=== PATIENT | female | born 1970 | race Caucasian/White ===

== ENCOUNTER 2016-06-15 13:52 | Emergency (ER) | payer SELFPAY ==
[~2016-06-15] VITALS: Ht 165.1 cm; Wt 109.0 kg
[~2016-06-15 13:52] MED LIST: DUONI NEB; ENAL10TA7 PO; HYDR-2768 PO; OMEP20TA39 PO; PRED20 PO; VENTAER INH
[2016-06-15 14:00] VITALS: BP 144/94; PULSE 92; RESP 18; TEMP 98.6; O2SAT 95
--- NOTE | 2016-06-15 14:24 | PD ---
HPI Chief Complaint: Cold / Flu Symptoms Time Seen by Provider: 14:20 Travel History International Travel<30 days: No Contact w/Intl Traveler<30days: No Traveled to known affect area: No History of Present Illness HPI Patient is a 45-year-old female with a history of asthma presenting with a one- week history of cough. She states she feels like she has bronchitis and has had a cough with yellow productive sputum for one week. For the last several days cough has improved somewhat however she feels like there is congestion in her chest still. She has burning with coughing in the chest but denies chest pain. She has dyspnea and wheezing which does seem to improve with inhalers temporarily. She denies fevers chills. She has had nasal congestion and axillary and frontal facial pain as well. No rhinorrhea. She denies eye, throat and ear problems. She denies . She denies tobacco use. PFSH Past Medical History Asthma: Yes Cardiovascular Problems: Yes (htn on meds) Diminished Hearing: No GERD: Yes Hypertension: Yes Respiratory: Yes (asthma) Tetanus Vaccination: Unknown ?: Not Tubal Ligation: Yes Social History Alcohol Use: No Tobacco Use: No Substance Use: No Allergies-Medications (Allergen,Severity, Reaction): Coded Allergies: Morphine (Verified Allergy, Mild, RASH, 06/15/16) Reported Meds & Prescriptions Reported Meds & Active Scripts Active Duoneb (Ipratropium-Albuterol Neb) 0.5-2.5 Mg/3 Ml Neb 1 Nebule INH Q4HR NEB Proair Hfa 8.5 GM Inh (Albuterol Sulfate) 90 Mcg/Act Aer 2 Puff INH Q4-6H PRN 108 mcg/actuation Prednisone 20 Mg Tab 40 Mg PO DAILY 5 Days Tessalon Perles (Benzonatate) 100 Mg Cap 100-200 Mg PO TID PRN Azithromycin 250 Mg Tab 250 Mg PO DIRECTED Take 2 tabs (500 mg) on day 1 then 1 tab daily x 4 days. Review of Systems Except as stated in HPI: all other systems reviewed are Neg Physical Exam Narrative GENERAL: Well-developed and well-nourished adult female in no acute distress. SKIN: Warm and dry. Good turgor without tenting. HEAD: Normocephalic and atraumatic. EYES: PERRL bilaterally, 5mm. EOMI bilaterally. No injection or icterus present. No proptosis. Lids without edema or erythema. ENT: Nasal mucosa erythematous and edematous without discharge, septum intact and midline. Buccal mucosa pink and moist. Oropharynx free of erythema, tonsillar hypertrophy, masses, swelling, asymmetry and exudates. Uvula midline and airway patent. NECK: Supple, no meningeal sign. Trachea midline, no JVD. No cervical or facial lymphadenopathy. CARDIOVASCULAR: Regular rate and rhythm without murmurs, rubs, clicks or gallops. Radial and posterior tibial pulses 2+ bilaterally. No pedal edema. RESPIRATORY: Diffuse rhonchi and end-expiratory wheezing, no clear crackles auscultated. No distress or use of accessory muscles. Speaks in full sentences. No stridor, tripoding or drooling. MUSCULOSKELETAL: No gait disturbances. Patient freely moving all four extremities spontaneously. Extremities without clubbing, cyanosis, or edema. No obvious deformities. NEUROLOGIC: CN II-XII grossly intact. Awake and alert. Motor grossly within normal limits. Normal speech. PSYCHIATRIC: Appropriate mood and affect; insight and judgment normal. Data Data Last Documented VS Vital Signs Date Time Temp Pulse Resp B/P Pulse Ox O2 Delivery O2 Flow Rate FiO2 06/15/16 14:00 98.6 92 18 144/94 95 Room Air Orders Chest, Pa & Lat (06/15/16 14:19) Methylprednisolone So Succ Inj (Solumedr (06/15/16 14:30) Albuterol-Ipratropium Neb (Duoneb Neb) (06/15/16 14:30) MDM Medical Decision Making Medical Screen Exam Complete: Yes Emergency Medical Condition: Yes Interpretation(s) Last 24 hours Impressions Chest X-Ray 06/15/16 [id number] Signed Impressions: Service Date/Time: Wednesday, June 15, 2016 14:22 - CONCLUSION: No acute disease. No significant change has occurred. Jerman Gonzalez MD Differential Diagnosis Asthma exacerbation versus acute bronchitis versus pneumonia versus sinusitis Narrative Course Patient is a 45-year-old female with a history of asthma presenting with cough, chest congestion and nasal congestion for 1 week. She is afebrile and nontoxic appearing. Oxygen saturation 95% on room air and she has no increased work of breathing or use of accessory muscles. She has diffuse rhonchi and wheezing, no clear rales auscultated. Patient was given DuoNeb 3, Solu-Medrol and ordered chest x-ray which showed no evidence of acute cardiopulmonary process. On reexam the wheezing has resolved, slight rhonchi still present. Patient feels improved. She'll be discharged with azithromycin given the chronicity cannot rule out a early bacterial etiology. Also prescribed Tessalon Perles and prednisone to help with the symptoms. Patient was given refill of her inhaler of Proventil and given DuoNeb Nebules as she has a home nebulizer.See discharge paperwork for further instructions. The plan was discussed with the patient who acknowledged their understanding and agreement. Reinforced the follow-up with primary care is critically important. Patient instructed on emergent conditions that should prompt return to ED. Diagnosis Primary Impression: Asthma exacerbation Additional Impression: Acute bronchitis Qualified Code: J20.9 - Acute bronchitis, unspecified organism Patient Instructions: Acute Bronchitis (ED), General Instructions Departure Forms: Tests/Procedures, Work Release Enter return to work date: Jun 17, 2016 Additional Instructions: Take medication as prescribed OTC Mucinex, cough suppressants, and decongestants as needed OTC Tylenol or Ibuprofen for fever and discomfort Drink lots of fluid to help clear mucous/drainage and stay hydrated Follow up with PCP in 2 days Return to the ED for any acute worsening of symptoms Med/Other Pt SpecificInfo: Prescription(s) given Scripts Ipratropium-Albuterol Neb (Duoneb)0.5-2.5 Mg/3 Ml Neb1 Nebule INH Q4HR NEB #30 NEBULE Ref 0 Prov:Jennifer Daily MD 06/15/16 Albuterol 8.5 GM Inh (Proair Hfa 8.5 GM Inh)90 Mcg/Act Aer2 Puff INH Q4-6H PRN ( SHORTNESS OF BREATH) #1 INHALER 108 mcg/actuation Prov:Jennifer Daily MD 06/15/16 Prednisone 20 Mg Tab40 Mg PO DAILY 5 Days Prov:Jennifer Daily MD 06/15/16 Benzonatate (Tessalon Perles)100 Mg Pod605-725 Mg PO TID PRN (COUGH) #20 CAP Prov:Jennifer Daily MD 06/15/16 Azithromycin 250 Mg [id number] Mg PO DIRECTED #6 TAB Take 2 tabs (500 mg) on day 1 then 1 tab daily x 4 days. Prov:Jennifer Daily MD 06/15/16 Disposition: 01 DISCHARGE HOME Condition: Stable Saurabh Reed III Jun 15, 2016 14:24
[2016-06-15] MEDS ORDERED: methylPREDNISolone SOD SUCC 125 MG/2 ML VIAL IM ONE (14:30)
[2016-06-15] MEDS: RESP: ALBUTEROL 2.5 MG/IPRATROPIUM 0.5 MG NEB (SCH) INH ×2 (14:34→14:35)
--- NOTE | 2016-06-15 15:30 | RADHPO ---
EXAM DATE/TIME: 06/15/2016 14:22 [facility] COMPARISON: CHEST PA & LAT, September 11, 2015, 17:30. INDICATIONS : Cough and congestion for one week. MEDICAL HISTORY : None. SURGICAL HISTORY : None. ENCOUNTER: Initial ACUITY: 1 week PAIN SCORE: 1/10 LOCATION: Bilateral chest FINDINGS: PA and lateral views of the chest demonstrate the lungs to be symmetrically aerated without evidence of mass, infiltrate or effusion. The cardiomediastinal contours are unremarkable. Osseous structure s are intact. CONCLUSION: No acute disease. No significant change has occurred. Jerman Gonzalez MD on June 15, 2016 at 15:28 Board Certified Radiologist. This report was verified electronically.
[2016-06-15] MEDS ORDERED: ALBUAER3 INH (15:41)
[2016-06-15] MEDS ORDERED: BENZ100 PO (15:41)
[2016-06-15] MEDS ORDERED: IPRASOL INH (15:41)
[2016-06-15] MEDS ORDERED: AZIT250T3 PO (15:41)
[2016-06-15] MEDS ORDERED: PRED20 PO (15:41)
[2016-06-15 16:00] VITALS: BP 160/73
== END 2016-06-15 16:07 | disposition home or self-care (01) ==
LOC: PHEFT 13:52
DX: J45.901 Unspecified asthma with (acute) exacerbation (principal); J20.9 Acute bronchitis, unspecified; I10 Essential (primary) hypertension
CPT/HCPCS: 71020; 94640; 94664; 96372; 99283; J2930

== ENCOUNTER 2017-03-07 17:50 | Emergency (ER) | payer SELFPAY ==
[~2017-03-07 17:50] MED LIST changes: +ALBUAER3 INH; +AZIT250T3 PO; +BENZ100 PO; -DUONI NEB; -ENAL10TA7 PO; -HYDR-2768 PO; +IPRASOL INH; -OMEP20TA39 PO; -VENTAER INH
[2017-03-07 17:59] VITALS: BP 224/90; PULSE 99; RESP 20; TEMP 98.6; O2SAT 97
[2017-03-07] MEDS ORDERED: NEXI20CA PO (18:02)
[2017-03-07] MEDS ORDERED: ENALAPRIL MALEATE 10 MG TAB PO ONE (18:45)
[2017-03-07] MEDS ORDERED: HYDROCHLOROTHIAZIDE 25 MG TAB PO ONE (18:45)
[2017-03-07] MEDS ORDERED: HYDR25TA5 PO (18:47)
[2017-03-07] MEDS ORDERED: ENAL10TA PO (18:47)
--- NOTE | 2017-03-07 18:53 | PD ---
HPI Chief Complaint: Pain: Acute or Chronic Time Seen by Provider: 18:40 Travel History International Travel<30 days: No Contact w/Intl Traveler<30days: No Traveled to known affect area: No History of Present Illness HPI The patient is a 46-year-old female who presents emergency department for right leg pain. The patient notes a 3 to four-day history of right leg pain is located over the posterior aspect of the right calf, right popliteal fossa, and distal aspect of the right hamstring. The patient denies any known injury to the affected area. The pain is moderate, worse with weightbearing and activity, slightly alleviated at rest. She does note mild edema the right lower extremity. She denies any numbness or tingling to the right lower extremity denies any coolness to the right lower extremity. The patient denies any history of pulmonary embolism, DVT, recent hospitalizations, recent surgery , or recent prolonged travel. The patient also has a history of hypertension and has been off of her medications including enalapril 10 mg and hydrochlorothiazide 25 mg daily for the last 2 months. She does note her blood pressure is elevated but denies any acute headache, chest, shortness breath, nausea, vomiting, or abdominal pain. Symptoms are mild to moderate, no known alleviating or exacerbating factors. PFSH Past Medical History Arthritis: Yes Asthma: Yes Cardiovascular Problems: Yes Diminished Hearing: No GERD: Yes Hypertension: Yes Respiratory: Yes (asthma) ?: Not Tubal Ligation: Yes Social History Alcohol Use: No Tobacco Use: No Substance Use: No Allergies-Medications (Allergen,Severity, Reaction): Coded Allergies: morphine (Unverified Allergy, Mild, RASH, 03/07/17) Reported Meds & Prescriptions Reported Meds & Active Scripts Active Reported Nexium (Esomeprazole DR) 20 Mg Capdr 20 Mg PO DAILY Review of Systems Except as stated in HPI: all other systems reviewed are Neg HENT: No: Headaches, Lightheadedness Cardiovascular: No: Chest Pain or Discomfort Respiratory: No: Shortness of Breath Gastrointestinal: No: Nausea, Vomiting Musculoskeletal: Positive: Edema, Pain Skin: No Rash Neurologic: No: Paresthesia, Sensory Disturbance Physical Exam Narrative GENERAL: Awake, alert, very pleasant 46-year-old female who appears her stated age and is in no acute respiratory distress. SKIN: Focused skin assessment warm/dry. HEAD: Atraumatic. Normocephalic. EYES: No injection or drainage. ENT: No nasal bleeding or discharge. Mucous membranes pink and moist. NECK: Trachea midline. No JVD. CARDIOVASCULAR: Regular rate and rhythm. No murmur appreciated. RESPIRATORY: No accessory muscle use. Clear to auscultation. Breath sounds equal bilaterally. MUSCULOSKELETAL: The right leg has no obvious edema compared left leg except over the anterior aspect of the right foot. Positive dorsalis pedal pulses bilateral. Mild tenderness of the posterior aspect of the right calf, pop to fossa, distal right hamstring. No obvious varicosities noted. NEUROLOGICAL: Awake and alert. No obvious cranial nerve deficits. Motor grossly within normal limits. Normal speech. Sensation is intact of the medial , lateral, and dorsal aspect of the right foot. PSYCHIATRIC: Appropriate mood and affect; insight and judgment normal. Data Data Last Documented VS Vital Signs Date Time Temp Pulse Resp B/P (MAP) Pulse Ox O2 Delivery O2 Flow Rate FiO2 03/07/17 17:59 98.6 99 20 224/90 (134) 97 Orders Orders Complete Blood Count With Diff (03/07/17 18:40) Basic Metabolic Panel (Bmp) (03/07/17 18:40) Act Partial Throm Time (Ptt) (03/07/17 18:40) Prothrombin Time / Inr (Pt) (03/07/17 18:40) Us Leg Venous Doppler (03/07/17 ) Enalapril (Vasotec) (03/07/17 18:45) Hydrochlorothiazide (Hydrodiuril) (03/07/17 18:45) MDM Medical Decision Making Medical Screen Exam Complete: Yes Emergency Medical Condition: Yes Medical Record Reviewed: Yes Differential Diagnosis Differential diagnosis includes DVT, muscle strain, radiculopathy, hypertensive , noncompliance, hypertensive urgency, hypertensive emergency. Narrative Course IV was established, labs are drawn and sent, and the patient was placed on cardiac telemetry monitoring and continuous pulse oximetry monitoring. The patient was administered enalapril 10 mg orally and Hydrocort Dyazide 25 g orally. BMP and coags were sent to lab. Ultrasound of the right lower extremity was ordered to rule out DVT. The patient was signed out to the oncoming physician at 7 PM with laboratory evaluation and ultrasound pending. I will refill the patient's prescription for enalapril and hydrochlorothiazide as she states she had been on it for some time prior to running out 2 months ago. Diagnosis Primary Impression: Right leg pain Additional Impression: Hypertension Qualified Codes: I10 - Essential (primary) hypertension Patient Instructions: General Instructions Scripts Hydrochlorothiazide (Hydrochlorothiazide) 25 Mg Tab 25 MG PO DAILY, #30 TAB 2 Refills Prov: Patrick Freire MD 03/07/17 Enalapril (Enalapril) 10 Mg Tab 10 MG PO DAILY, #30 TAB 2 Refills Prov: Patrick Freire MD 03/07/17 Disposition: 01 DISCHARGE HOME Condition: Stable Patrick Freire MD Mar 07, 2017 18:53
[2017-03-07 18:57] VITALS: BP 199/88; PULSE 95; O2SAT 96
[2017-03-07 19:10] LABS: AUTOMATED NEUTROPHIL # 7.6 TH/MM3 (1.8-7.7); BASOPHIL # 0.1 TH/MM3 (0-0.2); BASOPHIL % 0.5 % (0.0-2.0); EOSINOPHIL # 0.4 TH/MM3 (0-0.4); EOSINOPHIL % 3.4 % (0.0-4.0); HEMATOCRIT 35.6 % (35.0-46.0); HEMO FLAGS DIFF FINAL; LYMPH % 18.6 % (9.0-44.0); LYMPHOCYTE # 1.9 TH/MM3 (1.0-4.8); MEAN CELL VOLUME 79.7 FL (80.0-100.0); MEAN CORPUSCULAR HEMOGLOBIN 26.8 PG (27.0-34.0); MEAN CORPUSCULAR HGB CONC 33.7 % (32.0-36.0); NEUT % 73.5 % (16.0-70.0); PLATELET COUNT 284 TH/MM3 (150-450); RED BLOOD COUNT 4.47 MIL/MM3 (4.00-5.30); RED CELL DISTRIBUTION WIDTH 14.8 % (11.6-17.2); WHITE BLOOD COUNT 10.4 TH/MM3 (4.0-11.0)
[2017-03-07 19:18] LABS: POTASSIUM 3.7 MEQ/L (3.5-5.1)
[2017-03-07 19:21] LABS: BICARBONATE 23.6 MEQ/L (21.0-32.0)
[2017-03-07 19:24] LABS: APTT (PATIENT) 26.1 SEC (24.3-30.1); INTERNATIONAL NORMALIZED RATIO 0.9 RATIO
[2017-03-07 19:27] VITALS: BP 173/76
--- NOTE | 2017-03-07 19:43 | RADRPT ---
EXAM DATE/TIME: 03/07/2017 19:19 [facility] COMPARISON: No previous studies available for comparison. INDICATIONS : Right leg pain. MEDICAL HISTORY : Hypertension. Gastroesophageal reflux disease. Cardiac disorders. Asthma. Arthritis. Hay fever. SURGICAL HISTORY : Tubal ligation. ENCOUNTER: Initial ACUITY: 4 - 6 days PAIN SCORE: 3/10 LOCATION: Right leg. TECHNIQUE: Venous ultrasound of the leg was performed from the inguinal ligament to the proximal calf. Real-marcello e, color Doppler and spectral tracing, compression and augmentation techniques were used. FINDINGS: There is normal compressibility of the deep venous system from the inguinal region to the proximal ca lf. No echogenic clot is seen in the lumen of the common femoral, femoral, popliteal, and posterior tibial veins. There is a normal response of the venous system to proximal and distal augmentation an d respiration. CONCLUSION: No DVT of the right lower extremity. Saurabh Dumont MD on March 07, 2017 at 19:41 Board Certified Radiologist. This report was verified electronically.
[2017-03-07] MEDS ORDERED: KETOROLAC TROMETHAMINE 60 MG/2 ML (IM) VIAL IVP ONE (19:45)
[2017-03-07] MEDS ORDERED: IBUP-232 PO (20:14)
--- NOTE | 2017-03-07 20:14 | PD ---
Physical Exam Time Seen by Provider: 20:[address] Freire left this patient with me to check the ultrasound and make a disposition-likely discharge. Data Data Last Documented VS Vital Signs Date Time Temp Pulse Resp B/P (MAP) Pulse Ox O2 Delivery O2 Flow Rate FiO2 03/07/17 19:27 173/76 (108) 03/07/17 18:57 95 96 Room Air 03/07/17 17:59 98.6 20 Orders Orders Complete Blood Count With Diff (03/07/17 18:40) Basic Metabolic Panel (Bmp) (03/07/17 18:40) Act Partial Throm Time (Ptt) (03/07/17 18:40) Prothrombin Time / Inr (Pt) (03/07/17 18:40) Us Leg Venous Doppler (03/07/17 ) Enalapril (Vasotec) (03/07/17 18:45) Hydrochlorothiazide (Hydrodiuril) (03/07/17 18:45) Ketorolac Inj (Toradol Inj) (03/07/17 19:45) Labs Laboratory Tests Test 03/07/17 19:00 White Blood Count 10.4 TH/MM3 Red Blood Count 4.47 MIL/MM3 Hemoglobin 12.0 GM/DL Hematocrit 35.6 % Mean Corpuscular Volume 79.7 FL Mean Corpuscular Hemoglobin 26.8 PG Mean Corpuscular Hemoglobin Concent 33.7 % Red Cell Distribution Width 14.8 % Platelet Count 284 TH/MM3 Mean Platelet Volume 7.7 FL Neutrophils (%) (Auto) 73.5 % Lymphocytes (%) (Auto) 18.6 % Monocytes (%) (Auto) 4.0 % Eosinophils (%) (Auto) 3.4 % Basophils (%) (Auto) 0.5 % Neutrophils # (Auto) 7.6 TH/MM3 Lymphocytes # (Auto) 1.9 TH/MM3 Monocytes # (Auto) 0.4 TH/MM3 Eosinophils # (Auto) 0.4 TH/MM3 Basophils # (Auto) 0.1 TH/MM3 CBC Comment DIFF FINAL Differential Comment Prothrombin Time 10.0 SEC Prothromb Time International Ratio 0.9 RATIO Activated Partial Thromboplast Time 26.1 SEC Blood Urea Nitrogen 16 MG/DL Creatinine 0.85 MG/DL Random Glucose 101 MG/DL Calcium Level 8.3 MG/DL Sodium Level 139 MEQ/L Potassium Level 3.7 MEQ/L Chloride Level 108 MEQ/L Carbon Dioxide Level 23.6 MEQ/L Anion Gap 7 MEQ/L Estimat Glomerular Filtration Rate 71 ML/MIN [facility] Medical Record Reviewed: Yes Supervised Visit with AVELINA: Yes Interpretation(s) The coagulation profile is normal. The basic metabolic profile is normal except for a GFR of 71 and calcium 8.3. The CBC is normal. The ultrasound shows no DVT of the right lower extremity. The coagulation profile is normal. Differential Diagnosis DVT right lower extremity, cellulitis, soft tissue inflammation Narrative Course The patient apparently has soft tissue inflammation/pain in the posterior knee area. There is no clinical evidence for cellulitis. There is no laboratory evidence of significant infection. Impression: Right leg pain, hypertension poor control Diagnosis Primary Impression: Right leg pain Additional Impression: Hypertension Qualified Codes: I10 - Essential (primary) hypertension Patient Instructions: General Instructions Additional Instruction: Follow-up with her primary care physician and elevate your right leg. I'll write ibuprofen 600 mg 3 times daily to take regularly for the pain. Med/Other Pt SpecificInfo: Prescription(s) given Scripts Ibuprofen (Ibuprofen) 600 Mg Tab 600 MG PO TID, #33 TAB 0 Refills Prov: Leonel Vallejo MD 03/07/17 Hydrochlorothiazide (Hydrochlorothiazide) 25 Mg Tab 25 MG PO DAILY, #30 TAB 2 Refills Prov: Patrick Freire MD 03/07/17 Enalapril (Enalapril) 10 Mg Tab 10 MG PO DAILY, #30 TAB 2 Refills Prov: Patrick Freire MD 03/07/17 Disposition: 01 DISCHARGE HOME Condition: Stable Leonel Vallejo MD Mar 07, 2017 20:14
[2017-03-07 20:24] VITALS: BP 180/81
== END 2017-03-07 20:28 | disposition home or self-care (01) ==
LOC: PHED 17:50
DX: M79.604 Pain in right leg (principal); I10 Essential (primary) hypertension
CPT/HCPCS: 80048; 85025; 85610; 85730; 93971; 96374; 99284; J1885

== ENCOUNTER 2017-03-10 17:07 | Emergency (ER) | payer SELFPAY ==
[~2017-03-10] VITALS: Ht 165.1 cm; Wt 111.0 kg
[~2017-03-10 17:07] MED LIST changes: -ALBUAER3 INH; -AZIT250T3 PO; -BENZ100 PO; +ENAL10TA PO; +HYDR25TA5 PO; +IBUP-232 PO; -IPRASOL INH; +NEXI20CA PO; -PRED20 PO
[2017-03-10 17:36] VITALS: BP 143/77; PULSE 91; RESP 16; TEMP 98.9; O2SAT 94
--- NOTE | 2017-03-10 18:28 | PD ---
HPI Chief Complaint: Musculoskeletal Complaint Time Seen by Provider: 17:57 Travel History International Travel<30 days: No Contact w/Intl Traveler<30days: No Traveled to known affect area: No History of Present Illness HPI 46-year-old female presents to the emergency room for reevaluation of right posterior leg pain and swelling for the past week. Patient denies trauma or injury. She came 4 days ago to the emergency room and had an ultrasound that showed no acute abnormality. Her pain started to improve yesterday but this morning while getting dressed and sticking her legs into her pain is, she felt a pop behind her knee and has not been able to ambulate since. States pain is constant, severe, localized to the posterior knee and worse with range of motion. States anytime she takes a step that is severe. She took ibuprofen without significant relief in symptoms. Denies paresthesias. She has not been on antibiotics recently. PFSH Past Medical History Arthritis: Yes Asthma: Yes Cardiovascular Problems: Yes Diminished Hearing: No GERD: Yes Hypertension: Yes Respiratory: Yes (asthma) Tetanus Vaccination: > 5 Years Influenza Vaccination: No ?: Not LMP: 3 weeks ago Tubal Ligation: Yes Social History Alcohol Use: No Tobacco Use: No Substance Use: No Allergies-Medications (Allergen,Severity, Reaction): Coded Allergies: morphine (Unverified Allergy, Mild, RASH, 03/10/17) Reported Meds & Prescriptions Reported Meds & Active Scripts Active Tramadol (Tramadol HCl) 50 Mg Tab 50 Mg PO Q6H PRN Ibuprofen 600 Mg Tab 600 Mg PO TID Hydrochlorothiazide 25 Mg Tab 25 Mg PO DAILY Enalapril (Enalapril Maleate) 10 Mg Tab 10 Mg PO DAILY Review of Systems Except as stated in HPI: all other systems reviewed are Neg Physical Exam Narrative GENERAL: Well-nourished, well-developed female in no acute distress. Afebrile. SKIN: Focused skin assessment warm/dry. No erythema or ecchymosis. HEAD: Normocephalic. EYES: No scleral icterus. No injection or drainage. NECK: Supple, trachea midline. No JVD or lymphadenopathy. CARDIOVASCULAR: Regular rate and rhythm without murmurs, gallops, or rubs. RESPIRATORY: Breath sounds equal bilaterally. No accessory muscle use. MUSCULOSKELETAL: No cyanosis. 1+ pitting edema on the right leg. 2+ dorsalis pedis pulse. Full range of motion of the ankle and foot. Patient can fully extend the leg but can only flex to approximately 150. BACK: Nontender without obvious deformity. No CVA tenderness. Data Data Last Documented VS Vital Signs Date Time Temp Pulse Resp B/P (MAP) Pulse Ox O2 Delivery O2 Flow Rate FiO2 03/10/17 17:36 98.9 91 16 143/77 (99) 94 Orders Orders Knee, Complete (4vws) (03/10/17 ) Crutches (03/10/17 20:08) Nuno Bandage (03/10/17 20:08) Tramadol (Ultram) (03/10/17 20:45) MDM Medical Decision Making Medical Screen Exam Complete: Yes Emergency Medical Condition: Yes Medical Record Reviewed: Yes Differential Diagnosis Tenosynovitis, posterior tibial tendon dysfunction, DVT, Ray cyst Narrative Course 46-year-old female presents to the emergency room for evaluation of right knee pain and swelling for the past week. Patient came to the emergency room for the same a few days ago and had an ultrasound which was negative. She was diagnosis posterior tibial tendon dysfunction and discharged with prescriptions for ibuprofen and blood pressure medications. States her symptoms seemed to be improving until today. While putting her pants on, she felt a pop and had extreme worsening of symptoms. Right lower extremity is neurovascularly intact with 2+ dorsalis pedis pulse. Patient has limited range of motion secondary to pain. There is mild 1+ pitting edema on the right which is slightly worse on left. X-ray shows small effusion. No suspicion for ruptured tendon. Differential includes ruptured Ray cyst or internal derangement of the knee. She was placed in Nuno wrap and given crutches. Patient was told to follow-up with a primary care physician for outpatient imaging if symptoms persist. Told to return for worsening symptoms. She'll discharged with prescription for tramadol. She understands and agrees to plan. Diagnosis Primary Impression: Effusion, right knee Referrals: Orthopaedic Surgeon Additional Instructions: Rest and drink plenty of fluids. Use Nuno wrap and crutches for the next 24-48 hours, then as needed for pain. Take ibuprofen with food as directed, as needed for pain. Apply ice to the affected area for 20 minutes at a time, as needed for pain and swelling. Follow-up with a primary care physician. Return to the emergency room for worsening symptoms. Med/Other Pt SpecificInfo: Prescription(s) given Scripts Tramadol (Tramadol) 50 Mg Tab 50 MG PO Q6H Y for PAIN, #7 TAB 0 Refills Prov: Marek Durham MD 03/10/17 Disposition: 01 DISCHARGE HOME Condition: Stable Nat Mcarthur Mar 10, 2017 18:28
--- NOTE | 2017-03-10 19:58 | RADRPT ---
EXAM DATE/TIME: 03/10/2017 18:38 [facility] COMPARISON: No previous studies available for comparison. INDICATIONS : Right knee pain. MEDICAL HISTORY : None. SURGICAL HISTORY : None. ENCOUNTER: Initial ACUITY: 1 day PAIN SCORE: 6/10 LOCATION: Right posterior knee FINDINGS: No fracture is seen. The knee joint is normally aligned. There is a small effusion. Minimal spurs are seen at the medial joint space. CONCLUSION: Mild effusion. Saurabh Johnson MD on March 10, 2017 at 19:56 Board Certified Radiologist. This report was verified electronically.
[2017-03-10] MEDS ORDERED: TRAM50TA PO (20:33)
[2017-03-10] MEDS ORDERED: traMADol HCL 50 MG TAB PO ONE (20:45)
== END 2017-03-10 22:05 | disposition home or self-care (01) ==
LOC: PHEFT 17:07
DX: M25.461 Effusion, right knee (principal); I10 Essential (primary) hypertension; K21.9 Gastro-esophageal reflux disease without esophagitis; J45.909 Unspecified asthma, uncomplicated
CPT/HCPCS: 73564; 99283; E0113

== ENCOUNTER 2017-06-30 14:35 | Emergency (ER) | payer OTHER | END 2017-06-30 15:56 | disposition home or self-care (01) | LOC: PHEFT 14:35 | DX: J06.9 Acute upper respiratory infection, unspecified (principal); J45.909 Unspecified asthma, uncomplicated; I10 Essential (primary) hypertension; K21.9 Gastro-esophageal reflux disease without esophagitis; Z88.5 Allergy status to narcotic agent; Z79.899 Other long term (current) drug therapy | CPT/HCPCS: 99283 ==

== ENCOUNTER 2017-07-08 18:58 | Emergency (ER) | payer OTHER ==
[~2017-07-08] VITALS: Ht 165.1 cm; Wt 113.4 kg
[~2017-07-08 18:58] MED LIST changes: +BENZ100 PO; -NEXI20CA PO; +OMEP20TA93 PO; +PRED20 PO
[2017-07-08 19:49] VITALS: BP 156/84; PULSE 87; RESP 18; TEMP 98.4; O2SAT 97
--- NOTE | 2017-07-08 20:24 | PD ---
HPI Chief Complaint: Eye Problems/Injury Time Seen by Provider: 20:19 Travel History International Travel<30 days: No Contact w/Intl Traveler<30days: No Traveled to known affect area: No History of Present Illness HPI 47-year-old female presents for evaluation of left eye irritation. Prior to arrival the patient reports that she was attempting to plunge and drain with core cleaner in it when some splashed into and around her left eye. She has mild burning sensation around her left eye and in her left eye. Symptoms are mild, aggravated by splashing core cleaner into her left eye, no alleviating factors. She has no other complaints at this time. PFSH Past Medical History Hx Anticoagulant Therapy: No Arthritis: Yes Asthma: Yes Cardiovascular Problems: Yes (HTN) Diabetes: No Diminished Hearing: No GERD: Yes Hypertension: Yes Respiratory: Yes ?: Not LMP: NOW Tubal Ligation: Yes Social History Alcohol Use: No Tobacco Use: No Substance Use: No Allergies-Medications (Allergen,Severity, Reaction): Coded Allergies: morphine (Unverified Allergy, Mild, RASH, 07/08/17) Reported Meds & Prescriptions Reported Meds & Active Scripts Active Tessalon Perles (Benzonatate) 100 Mg Cap 200 Mg PO TID PRN Prednisone 20 Mg Tab 40 Mg PO DAILY Take 40 mg (2 tablets) daily for 5 days Ibuprofen 600 Mg Tab 600 Mg PO TID Hydrochlorothiazide 25 Mg Tab 25 Mg PO DAILY Enalapril (Enalapril Maleate) 10 Mg Tab 10 Mg PO DAILY Reported Omeprazole 20 Mg Tab 20 Mg PO BID Review of Systems General / Constitutional: No: Fever, Chills Eyes: Positive: Pain, No: Blurred Vision, Photophobia, Drainage Physical Exam Narrative GENERAL: Well-developed well-nourished female in no acute distress SKIN: Warm and dry. HEAD: Atraumatic. Normocephalic. EYES: Pupils equal and round reactive to light extraocular muscles are intact no conjunctival injection. Wood's lamp is unremarkable. PH is 7-8 in the left eye. ENT: No nasal bleeding or discharge. Mucous membranes pink and moist. NECK: Trachea midline. No JVD. Data Data Last Documented VS Vital Signs Date Time Temp Pulse Resp B/P (MAP) Pulse Ox O2 Delivery O2 Flow Rate FiO2 07/08/17 19:49 98.4 87 18 156/84 (108) 97 Orders Orders Proparacaine 0.5% Opth Soln (Alcaine 0.5 (07/08/17 20:30) Ed Discharge Order (07/08/17 20:27) Eye Irrigation (07/08/17 20:27) MDM Medical Decision Making Medical Screen Exam Complete: Yes Emergency Medical Condition: Yes Medical Record Reviewed: Yes Differential Diagnosis Chemical conjunctivitis, alkaline burn, corneal ulceration Narrative Course The patient's left eye has a normal pH with no evidence of corneal burn or ulceration. The eye will be thoroughly irrigated with Ken lens prior to discharge. Diagnosis Primary Impression: Irritation of left eye Additional Instructions: Follow-up with primary care physician for recheck in 2-3 days. Med/Other Pt SpecificInfo: No Change to Meds Disposition: 01 DISCHARGE HOME Condition: Stable Prince Angulo Jul 08, 2017 20:24
[2017-07-08] MEDS ORDERED: PROPARACAINE HCL 0.5% OPHT SOLN 15 ML BTL LEFT EYE ONE (20:30)
== END 2017-07-08 21:40 | disposition home or self-care (01) ==
LOC: PHEFT 18:58
DX: H57.8 Other specified disorders of eye and adnexa (principal); I10 Essential (primary) hypertension; J45.909 Unspecified asthma, uncomplicated; M19.90 Unspecified osteoarthritis, unspecified site; K21.9 Gastro-esophageal reflux disease without esophagitis; Z77.098 Contact with and (suspected) exposure to other hazardous, chiefly nonmedicinal, chemicals; Z88.5 Allergy status to narcotic agent; Z79.899 Other long term (current) drug therapy
CPT/HCPCS: 99283

== ENCOUNTER 2017-07-12 12:06 | Emergency (ER) | payer OTHER ==
[~2017-07-12] VITALS: Ht 165.1 cm; Wt 112.0 kg
[2017-07-12 12:09] VITALS: BP 139/75; PULSE 100; RESP 16; TEMP 98.1; O2SAT 94
[2017-07-12] MEDS ORDERED: ALBU.5I NEB (12:27)
[2017-07-12] MEDS ORDERED: VENTAER INH (12:27)
[2017-07-12] MEDS ORDERED: ZOFR4TAB PO (12:34)
[2017-07-12] MEDS ORDERED: TRAM50TA PO (12:34)
[2017-07-12] MEDS ORDERED: ONDANSETRON ODT 4 MG TAB PO ONE (12:45)
[2017-07-12] MEDS ORDERED: ACETAMINOPHEN/HYDROcodone 325 MG/5 MG TAB PO ONE (12:45)
--- NOTE | 2017-07-12 12:47 | PD ---
HPI Chief Complaint: GI Complaint Time Seen by Provider: 12:17 Travel History International Travel<30 days: No Contact w/Intl Traveler<30days: No Traveled to known affect area: No History of Present Illness HPI This patient complains of cough and congestion and body aches and headache. Duration 3 days. Severity is moderate. No alleviating factors or presyncopal symptoms. PFSH Past Medical History Hx Anticoagulant Therapy: No Arthritis: Yes Asthma: Yes Cardiovascular Problems: Yes (htn on meds) Diabetes: No Diminished Hearing: No GERD: Yes Hypertension: Yes Respiratory: Yes (asthma) Influenza Vaccination: No ?: Not LMP: 07/04/17 Tubal Ligation: Yes Social History Alcohol Use: No Tobacco Use: No (NEVER) Substance Use: No Allergies-Medications (Allergen,Severity, Reaction): Coded Allergies: morphine (Unverified Allergy, Mild, RASH, 07/12/17) Reported Meds & Prescriptions Reported Meds & Active Scripts Active Zofran (Ondansetron HCl) 4 Mg Tab 4 Mg PO Q6HR PRN Tramadol (Tramadol HCl) 50 Mg Tab 50 Mg PO Q6H PRN Hydrochlorothiazide 25 Mg Tab 25 Mg PO DAILY Enalapril (Enalapril Maleate) 10 Mg Tab 10 Mg PO DAILY Reported Ventolin Hfa 18 GM Inh (Albuterol Sulfate) 90 Mcg/Act Aer 2 Puff INH Q4H PRN Albuterol Neb (Albuterol Sulfate) 2.5 Mg/0.5 Ml Neb 2.5 Mg NEB TID NEB PRN Note: The Albuterol Sulfate Inhalation Solution is concentrated and must be diluted. Read complete instructions carefully before using. Omeprazole 20 Mg Tab 20 Mg PO BID Review of Systems General / Constitutional: No: Fever HENT: Positive: Headaches Cardiovascular: No: Chest Pain or Discomfort Respiratory: Positive: Cough Physical Exam Narrative GENERAL: Well-nourished, well-developed patient in no apparent distress. SKIN: Focused skin assessment reveals no rash and nodules. Skin is Warm and dry. HEAD: Atraumatic. Normocephalic. EYES: Pupils equal and round. No scleral icterus. No injection or drainage. ENT: No nasal bleeding or discharge. Mucous membranes pink and moist. NECK: Trachea midline. No JVD. CARDIOVASCULAR: Regular rate and rhythm. No murmur appreciated. RESPIRATORY: No accessory muscle use. Clear to auscultation. Breath sounds equal bilaterally. GASTROINTESTINAL: Abdomen soft, non-tender, nondistended. Hepatic and splenic margins not palpable. MUSCULOSKELETAL: No obvious deformities. No clubbing. No cyanosis. No edema. NEUROLOGICAL: Awake and alert. No obvious cranial nerve deficits. Motor grossly within normal limits. Normal speech. PSYCHIATRIC: Appropriate mood and affect; insight and judgment normal. Data Data Last Documented VS Vital Signs Date Time Temp Pulse Resp B/P (MAP) Pulse Ox O2 Delivery O2 Flow Rate FiO2 07/12/17 12:22 16 07/12/17 12:09 98.1 100 139/75 (96) 94 Orders Orders Acetamin-Hydrocod 325-5 Mg ([place] 5-325 (07/12/17 12:45) Ondansetron Odt (Zofran Odt) (07/12/17 12:45) [facility] Medical Decision Making Medical Screen Exam Complete: Yes Emergency Medical Condition: Yes Medical Record Reviewed: Yes Differential Diagnosis Flu syndrome, bronchitis, pneumonia Narrative Course I have reviewed the patient's electronic medical record. Presentation is most consistent with acute flu-type syndrome. I gave her some Zofran and 2 pain pills Symptomatic relief prescribed Diagnosis Primary Impression: Flu syndrome Additional Instructions: The patient was advised to follow up with their physician and return if they worsen. The patient was warned about potential sedation for the medications they will receive on prescription. Med/Other Pt SpecificInfo: Prescription(s) given Scripts Ondansetron (Zofran) 4 Mg Tab 4 MG PO Q6HR Y for NAUSEA OR VOMITING, #10 TAB 0 Refills Prov: Constantine Liu MD 07/12/17 Tramadol (Tramadol) 50 Mg Tab 50 MG PO Q6H Y for PAIN, #12 TAB 0 Refills Prov: Constantine Liu MD 07/12/17 Disposition: 01 DISCHARGE HOME Condition: Stable Constantine Liu MD Jul 12, 2017 12:47
[2017-07-12 13:27] VITALS: BP 168/83
[2017-07-12 13:28] VITALS: RESP 16
== END 2017-07-12 13:29 | disposition home or self-care (01) ==
LOC: PHED 12:06
DX: R05 Cough (principal); R51 Headache; R09.81 Nasal congestion; M19.90 Unspecified osteoarthritis, unspecified site; J45.909 Unspecified asthma, uncomplicated; I10 Essential (primary) hypertension; K21.9 Gastro-esophageal reflux disease without esophagitis; Z88.5 Allergy status to narcotic agent; Z79.51 Long term (current) use of inhaled steroids
CPT/HCPCS: 99283